=== PATIENT | male | born 1955 | race Caucasian/White ===

== ENCOUNTER → 2020-06-29 12:34 | Outpatient (CLI) | payer OTHER, SELFPAY ==
--- NOTE | ~2020-06-29 | US_ITS ---
EXAMINATION: US soft tissue head and neck DATE: 06/29/2020 13:05 INDICATION: Enlarging right parotid mass. TECHNIQUE: Multiple grayscale and Doppler ultrasound images of the right head and neck in the region of the right parotid gland were obtained. COMPARISON: CT dated 07/03/2008 FINDINGS: 4.7 x 1.6 x 4.3 cm hypoechoic right parotid mass with internal hyperechoic septations, lobular margin s and internal vascular flow on color Doppler. There are several normal sized and normal-appearing ov oid lymph nodes with central fatty jaspal the largest measuring 1.6 cm in maximal short axis diameter. IMPRESSION: 1. Indeterminate 4.7 x 1.6 x 4.3 cm right parotid mass. Given the presence of a prior left-sided paro tid mass and reported prior benign right parotid biopsy would favor against tumor. Differential would otherwise include pleomorphic adenoma, salivary gland tumor either benign adenoma or malignant carci noma, lymphoma or metastatic disease. Correlate with any prior outside imaging and results from repor terri prior biopsy. If clinically indicated could consider rebiopsy. Reviewed, dictated and finalized at location B. IMPRESSION: 1. Indeterminate 4.7 x 1.6 x 4.3 cm right parotid mass. Given the presence of a prior left-sided parotid mass and reported prior benign right parotid biopsy w ould favor against tumor. Differential would otherwise include pleomorphic candice tad, salivary gland tumor either benign adenoma or malignant carcinoma, lymphom a or metastatic disease. Correlate with any prior outside imaging and results f rom reported prior biopsy. If clinically indicated could consider rebiopsy.
== END ==
DX: K11.8 Other diseases of salivary glands (principal)
CPT/HCPCS: 76536

== ENCOUNTER → 2023-02-11 07:29 | Outpatient (CLI) | payer OTHER, SELFPAY ==
--- NOTE | ~2023-02-11 | XR_ITS ---
Lumbosacral Spine: AP and lateral views Clinical History: Pain Findings: The normal lordotic curve is maintained. No fracture identified. 7 mm retrolisthesis of L2 over L3 noted. There is mild to moderate facet arthropathy throughout the lumbar spine. The sacroilia c joints are normally outlined. Impression: 7 mm retrolisthesis of L2 over L3. 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 Reviewed, dictated and finalized at location M. Impression: 7 mm retrolisthesis of L2 over L3. 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
--- NOTE | ~2023-02-11 | XR_ITS ---
Right Knee Technique: AP, lateral, and sunrise views were obtained. Clinical History: Pain Findings: No fracture or dislocation is seen. Osseous alignment is anatomic. Joint spaces are preserv ed without degenerative or erosive change. Vascular calcifications are noted. No joint effusion is se en. Impression: Unremarkable right knee radiographs. Reviewed, dictated and finalized at [facility]. Impression: Unremarkable right knee radiographs.
== END ==
PROVIDERS: PCP Physician Assistant; Visit Provider Physician Assistant
DX: M54.31 Sciatica, right side (principal); M47.816 Spondylosis without myelopathy or radiculopathy, lumbar region; M43.16 Spondylolisthesis, lumbar region; M25.561 Pain in right knee
CPT/HCPCS: 72100; 73564